=== PATIENT | female | born 1955 | race Caucasian/White ===

== ENCOUNTER 2020-06-03 02:36 | Observation (INO) ==
[2020-06-03] MEDS ORDERED: Dextrose 50% Syringe 50 ml 25 GM/50 ML SYRINGE IV PUSH PRN (06:43)
[2020-06-03] MEDS ORDERED: TRAMETINIB 2 MG PO SCH (09:00)
[2020-06-03 11:44] VITALS: BP 136/74
[2020-06-03] MEDS ORDERED: LORazepam 2 mg VIAL 1 ml IV PUSH PRN (11:51)
[2020-06-03] MEDS ORDERED: Lorazepam PYXIS KEY PRN (11:51)
== END 2020-06-03 16:50 | disposition home or self-care (01) ==
LOC: MED 06:17 → INTOOBSV 06:17
PROVIDERS: ADMIT Hospitalist; ATTEND Hospitalist